=== PATIENT | male | born 1930 | race Hispanic/Latino ===

== ENCOUNTER 2020-06-12 20:38 | Inpatient (IN) | payer SELFPAY ==
[2020-06-12] MEDS ORDERED: NA CHLORIDE 0.9% 1,000 ML ONE (21:10)
[2020-06-12] MEDS ORDERED: ONDANSETRON 4 MG/2 ML VIAL ONE (21:10)
[2020-06-12] MEDS ORDERED: MORPHINE 4 MG/ML SYR ONE (21:10)
[2020-06-12 21:13] LABS: Basophils % 0.5 % (0-1.3); Hematocrit 36.4 % (39.6-49.0); Lymphocytes % 6.8 % (15.3-44.8); MPV 9.4 fL (7.6-11.3); RBC Red Blood Cell Count 3.93 M/uL (4.33-5.43)
[2020-06-12 21:16] LABS: Protime INR 1.04
[2020-06-12 21:36] LABS: Albumin 3.6 g/dL (3.4-5.0); Bilirubin Direct 0.2 mg/dL (0-0.2); Bilirubin Total 0.7 mg/dL (0.2-1.0); Magnesium 1.9 mg/dL (1.8-2.4); Potassium 3.5 mmol/L (3.5-5.1); Troponin (Emerg Dept Use Only) 0.07 ng/mL (0.0-0.045)
[2020-06-12 21:54] LABS: Platelet Estimate ADEQ; White Blood Cell Scan OK
[2020-06-12 21:55] LABS: Blood Morphology Comment NOT SEEN (NOT SEEN)
[2020-06-12] MEDS ORDERED: MORPHINE 2 MG/ML SYR ONE (22:03)
--- NOTE | 2020-06-12 22:12 | EDPHYS ---
Physician Documentation [facility] Name: Tomas Palacios Age: 89 yrs Sex: Male : 1930 Arrival Date: 06/12/2020 Time: 20:41 Bed 5 Private MD: MATIAS Physician Doc Conley HPI: 06/12 20:55 This 89 yrs old Male presents to ER via EMS with complaints of pulled down , hillary left hip pain, deformity. 20:55 The patient or guardian reports decreased range of motion, deformity, an injury, pain. hillary that occurred outdoors. The complaints affect the left hip and left upper thigh. Onset: The symptoms/episode began/occurred today. Modifying factors: The symptoms are alleviated by remaining still, the symptoms are aggravated by any movement, extension, internal rotation. The patient presents with decreased range of motion, an injury, pain, swelling, tenderness. The complaints affect the left hip, left gluteal fold, left inner thigh and left upper thigh. Context: The problem was sustained at home, resulted from the patient falling, the patient is not able to bear weight, the patient is not able to ambulate. Associated signs and symptoms: The patient has no apparent associated signs or symptoms. Historical: - Allergies: 20:52 No Known Allergies; mt2 - Home Meds: 20:52 None [Active]; mt2 - PMHx: 20:52 None; mt2 - Immunization history:: Adult Immunizations unknown. - Social history:: Smoking status: Patient denies any tobacco usage or history of. - Family history:: not pertinent. ROS: 20:55 Constitutional: Negative for fever, chills, and weight loss, Eyes: Negative for injury, hillary pain, redness, and discharge, ENT: Negative for injury, pain, and discharge, Neck: Negative for injury, pain, and swelling, Cardiovascular: Negative for chest pain, palpitations, and edema, Respiratory: Negative for shortness of breath, cough, wheezing, and pleuritic chest pain, Abdomen/GI: Negative for abdominal pain, nausea, vomiting, diarrhea, and constipation, Back: Negative for injury and pain, : Negative for injury, bleeding, discharge, and swelling, Skin: Negative for injury, rash, and discoloration, Neuro: Negative for headache, weakness, numbness, tingling, and seizure, Psych: Negative for depression, anxiety, suicide ideation, homicidal ideation, and hallucinations, Allergy/Immunology: Negative for hives, rash, and allergies, Endocrine: Negative for neck swelling, polydipsia, polyuria, polyphagia, and marked weight changes, Hematologic/Lymphatic: Negative for swollen nodes, abnormal bleeding, and unusual bruising. 20:55 MS/extremity: Positive for injury or acute deformity, decreased range of motion, pain, of the left hip, left gluteal fold, left inner thigh and left upper thigh. Exam: 20:55 Constitutional: This is a well developed, well nourished patient who is awake, alert, hillary and in no acute distress. Head/Face: Normocephalic, atraumatic. Eyes: Pupils equal round and reactive to light, extra-ocular motions intact. Lids and lashes normal. Conjunctiva and sclera are non-icteric and not injected. Cornea within normal limits. Periorbital areas with no swelling, redness, or edema. ENT: Nares patent. No nasal discharge, no septal abnormalities noted. Tympanic membranes are normal and external auditory canals are clear. Oropharynx with no redness, swelling, or masses, exudates, or evidence of obstruction, uvula midline. Mucous membranes moist. Neck: Trachea midline, no thyromegaly or masses palpated, and no cervical lymphadenopathy. Supple, full range of motion without nuchal rigidity, or vertebral point tenderness. No Meningismus. Chest/axilla: Normal chest wall appearance and motion. Nontender with no deformity. No lesions are appreciated. Respiratory: Lungs have equal breath sounds bilaterally, clear to auscultation and percussion. No rales, rhonchi or wheezes noted. No increased work of breathing, no retractions or nasal flaring. Abdomen/GI: Soft, non-tender, with normal bowel sounds. No distension or tympany. No guarding or rebound. No evidence of tenderness throughout. Back: No spinal tenderness. No costovertebral tenderness. Full range of motion. Male : Normal genitalia with no discharge or lesions. Skin: Warm, dry with normal turgor. Normal color with no rashes, no lesions, and no evidence of cellulitis. Neuro: Awake and alert, GCS 15, oriented to person, place, time, and situation. Cranial nerves II-XII grossly intact. Motor strength 5/5 in all extremities. Sensory grossly intact. Cerebellar exam normal. Normal gait. Psych: Awake, alert, with orientation to person, place and time. Behavior, mood, and affect are within normal limits. 20:55 Cardiovascular: Rate: tachycardic, Rhythm: regular, Pulses: no pulse deficits are appreciated, Heart sounds: normal, Edema: is not appreciated, JVD: is not appreciated. 20:55 Musculoskeletal/extremity: Extremities: decreased ROM, pain, swelling, tenderness, ROM: limited active range of motion, limited passive range of motion, Circulation is intact in all extremities. Sensation intact. Compartment Syndrome exam of affected extremity: is normal. DVT Exam: negative Homans' sign noted on exam, no appreciated bluish discoloration, no erythema, no increased warmth, pain, swelling, tenderness. 21:09 ECG was reviewed by the Attending Physician. [facility] Vital Signs: 20:48 BP 152 / 89; Pulse 130; Resp 19; Temp 98.4; Pulse Ox 100% on R/A; Weight 63.5 kg; Pain mt2 10/10; 21:30 BP 137 / 95; Pulse 97; Resp 16; Pulse Ox 97% ; Pain 10/10; mt2 22:19 BP 154 / 51; Pulse 97; Resp 16; Pulse Ox 99% on R/A; Pain 7/10; mt2 23:08 BP 115 / 49; Pulse 86; Resp 16; Pulse Ox 97% on R/A; Pain 5/10; mt2 MDM: 20:42 Patient medically screened. [facility] 20:58 Data reviewed: vital signs, nurses notes, lab test result(s), EKG, radiologic studies, [facility] plain films. 06/12 20:53 Order name: Basic Metabolic Panel; Complete Time: 22:06 [facility] 06/12 20:53 Order name: CBC with Diff; Complete Time: 22:06 [facility] 06/12 20:53 Order name: LFT's; Complete Time: 22:06 [facility] 06/12 20:53 Order name: Magnesium; Complete Time: 22:06 [facility] 06/12 20:53 Order name: NT PRO-BNP; Complete Time: 22:06 [facility] 06/12 20:53 Order name: PT-INR; Complete Time: 22:06 [facility] 06/12 20:53 Order name: Troponin (emerg Dept Use Only); Complete Time: 22:06 [facility] 06/12 20:53 Order name: XRAY Chest (1 view) [facility] 06/12 20:53 Order name: Pelvis XRAY [facility] 06/12 20:53 Order name: Hip Left 2 View XRAY [facility] 06/12 20:53 Order name: Femur Left XRAY [facility] 06/12 20:53 Order name: Type And Screen [facility] 06/12 21:17 Order name: CBC Smear Scan; Complete Time: 22:06 EDMS 06/12 20:53 Order name: EKG; Complete Time: 20:54 [facility] 06/12 20:53 Order name: Cardiac monitoring; Complete Time: 21:08 [facility] 06/12 20:53 Order name: EKG - Nurse/Tech; Complete Time: 21:08 [facility] 06/12 20:53 Order name: IV Saline Lock; Complete Time: 21:08 [facility] 06/12 20:53 Order name: Labs collected and sent; Complete Time: 21:08 [facility] 06/12 20:53 Order name: O2 Per Protocol; Complete Time: 21:08 [facility] 06/12 20:53 Order name: O2 Sat Monitoring [facility] 06/12 21:40 Order name: Labs - recollect needed; Complete Time: 21:55 06/12 22:14 Order name: EKG; Complete Time: 22:14 [facility] 06/12 22:14 Order name: EKG - Nurse/Tech; Complete Time: 22:15 [facility] EC:09 Rate is 117 beats/min. Rhythm is regular. QRS [place] is Normal. [place] interval is normal. [facility] QRS interval is normal. QT interval is normal. No Q waves. T waves are Normal. No ST changes noted. Clinical impression: Sinus tachycardia and No evidence of ischemia. Interpreted by me. Reviewed by me. Administered Medications: 21:07 Drug: NS 0.9% 1000 ml Route: IV; Rate: 1 bolus; Site: right antecubital; mt2 22:46 Follow up: Response: No adverse reaction mt2 22:46 Follow up: IV Status: Completed infusion mt2 21:07 Drug: morphine 2 mg Route: IVP; Site: right antecubital; mt2 21:37 Follow up: Response: No adverse reaction; Pain is decreased mt2 21:07 Drug: Zofran (Ondansetron) 4 mg Route: IVP; Site: right antecubital; mt2 21:37 Follow up: Response: No adverse reaction; Nausea is decreased mt2 21:54 Drug: morphine 2 mg Route: IVP; Site: right antecubital; ll2 21:54 Follow up: Response: No adverse reaction; RASS: Alert and Calm (0) ll2 22:30 Drug: Lopressor (metoprolol TARTRATE) 50 mg Route: PO; mt2 22:45 Follow up: Response: No adverse reaction mt2 22:31 Drug: Aspirin Chewable Tablet 162 mg Route: PO; mt2 22:45 Follow up: Response: No adverse reaction mt2 22:32 Drug: Pepcid 20 mg Route: IVP; Site: right antecubital; mt2 22:45 Follow up: Response: No adverse reaction mt2 Disposition: 06/12/20 22:11 Hospitalization ordered by [facility] for Inpatient Admission. Preliminary diagnosis are Fall due to bumping against object, Displaced intertrochanteric fracture of left femur. - Bed requested for Telemetry/MedSurg (Inpatient). - Status is Inpatient Admission. mt2 - Condition is Fair. - Problem is new. - Symptoms have improved. Signatures: Dispatcher [employer] EDMS Jaycee Betancourt RN RN [place] Bledsoe RN RN sg Anderson, Corey, MD MD cha Linscombe, Lacie, RN RN 2 Reina Arana RN RN mt2 Corrections: (The following items were deleted from the chart) 22:36 22:11 Hospitalization Ordered by [facility] DO for Inpatient Admission. Preliminary diagnosis is Fall due to bumping against object; Displaced intertrochanteric fracture of left femur. Bed requested for Telemetry/MedSurg (Inpatient). Status is Inpatient Admission. Condition is Fair. Problem is new. Symptoms have improved. [facility] 23:18 22:36 06/12/2020 22:11 Hospitalization Ordered by [facility] DO for Inpatient mt2 Admission. Preliminary diagnosis is Fall due to bumping against object; Displaced intertrochanteric fracture of left femur. Bed requested for Telemetry/MedSurg (Inpatient). Status is Inpatient Admission. Condition is Fair. Problem is new. Symptoms have improved.
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
[2020-06-12] MEDS ORDERED: FAMOTIDINE 20 MG/2 ML VIAL IV ONE (22:34)
[2020-06-12] MEDS ORDERED: METOPROLOL TAR 50 MG TAB ONE (22:34)
[2020-06-12] MEDS ORDERED: ASPIRIN EC 81 MG TAB PO ONE (22:34)
--- NOTE | 2020-06-12 22:42 | P.HP ---
Certification for Inpatient Patient admitted to: Inpatient With expected LOS: >2 Midnights Patient will require the following post-hospital care: Rehabilitation Practitioner: I am a practitioner with admitting privileges, knowledge of patient current condition, hospital course, and medical plan of care. Services: Services provided to patient in accordance with Admission requirements found in Title 42 Section 412.3 of the Code of Federal Regulations <Maxwell Rankin - Last Filed: 06/12/20 22:36> Patient History Date of Service: 06/12/20 Reason for admission: Left intertrochanteric femur fracture History of Present Illness: 89-year-old male with no reported medical history presents emergency department after a fall that occurred earlier today. Patient reports significant left hip pain. Upon presentation to the emergency department patient was tachycardic with a heart rate around 130s in sinus tachycardia. Patient was evaluated in the emergency department found to have a displaced left intratrochanteric femoral fracture. Orthopedics was consulted while patient is in the emergency department. Patient was given 1 L normal saline bolus and metoprolol p.o., heart rate came down nicely and is around 100 beats per min currently. ED provider wishes to admit patient for further evaluation and management. Patient also noted to have mildly elevated troponin at 0.07. - Past Medical/Surgical History Diabetic: No Past Medical History: Patient denies medical history Past Surgical History: Patient denies surgical history Psychosocial/ Personal History: Patient lives at home with his son - Family History Family History: Reviewed- Non-Contributory - Social History Smoking Status: Never smoker Alcohol use: No CD- Drugs: No Caffeine use: No Place of Residence: Home <Maxwell Rankin - Last Filed: 06/12/20 22:36> Date of Service: 06/13/20 <Brandon Lanza - Last Filed: 06/13/20 20:27> Review of Systems Musculoskeletal: Other (Left hip pain), As per HPI <Maxwell Rankin - Last Filed: 06/12/20 22:36> Physical Examination - Physical Exam General: Alert, In no apparent distress, Oriented x3 HEENT: Atraumatic, Normocephalic, PERRLA Neck: Supple, 2+ carotid pulse no bruit Respiratory: Clear to auscultation bilaterally, Normal air movement Cardiovascular: Normal pulses, Regular rate/rhythm, Normal S1 S2 Capillary refill: <2 Seconds Gastrointestinal: Normal bowel sounds, Soft and benign Musculoskeletal: No contractures, No erythema, Swelling (Left hip) Integumentary: No significant lesion, No erythema Neurological: Normal speech, Normal strength at 5/5 x4 extr, Normal tone - Studies Laboratory Data (last 24 hrs) 06/12/20 21:00: PT 12.3, INR 1.04 06/12/20 21:00: WBC 15.3 H, Hgb 12.5 L, Hct 36.4 L, Plt Count 159 06/12/20 21:00: Sodium 143, Potassium 3.5, BUN 15, Creatinine 1.07, Glucose 206 H, Magnesium 1.9, Total Bilirubin 0.7, AST 23, ALT 27, Alkaline Phosphatase 84 <Maxwell Rankin - Last Filed: 06/12/20 22:36> - Studies Laboratory Data (last 24 hrs) 06/12/20 21:00: PT 12.3, INR 1.04 06/12/20 21:00: WBC 15.3 H, Hgb 12.5 L, Hct 36.4 L, Plt Count 159 06/12/20 21:00: Sodium 143, Potassium 3.5, BUN 15, Creatinine 1.07, Glucose 206 H, Magnesium 1.9, Total Bilirubin 0.7, AST 23, ALT 27, Alkaline Phosphatase 84 <Brandon Lanza - Last Filed: 06/13/20 20:27> Assessment and Plan - Plan Assessment Displaced left intertrochanteric femur fracture Mildly elevated troponin level Hyperglycemia without history of diabetes Plan Displaced left intertrochanteric femur fracture: Orthopedics has been consulted. NPO after midnight, will hold off on DVT prophylaxis. Will consult Cardiology for cardiac clearance. Pain and nausea medicines as needed. Appreciate further input from orthopedics. Mildly elevated troponin level: Cardiology consult in place. Will continue with metoprolol at this time as patient was tachycardic and hypertensive on admission. Will also trend troponin levels. Appreciate further input from cardiology. Hyperglycemia without history of diabetes: Will obtain A1c the level with mo rning labs. Discharge Plan: Home Plan to discharge in: Greater than 2 days - Advance Directives Does patient have a Living Will: No Does patient have a Durable POA for Healthcare: No - Code Status/Comfort Care Code Status Assessed: Yes (Patient is full code) Critical Care: No Time Spent Managing Pts Care (In Minutes): 55 <Maxwell Rankin - Last Filed: 06/12/20 22:36> Physician Review Additional Text: Plan of care discussed with Maxwell Rankin, and I agree with the management plan as noted above. <Brandon Lanza - Last Filed: 06/13/20 20:27>
[2020-06-12] MEDS ORDERED: ACETAMINOPHEN 500 MG TAB PO PRN (23:52)
[2020-06-12] MEDS ORDERED: ONDANSETRON 4 MG/2 ML VIAL IV PRN (23:52)
[2020-06-12] MEDS ORDERED: MORPHINE 2 MG/ML SYR IV PRN (23:52)
[2020-06-13] MEDS: NA CHLORIDE 0.9% 1,000 ML IV SCH ×4 (00:57→23:06)
[2020-06-13] MEDS: HYDROCODONE/APAP 7.5/325 MG TAB PO PRN ×3 (00:57→22:12)
[2020-06-13 01:57] VITALS: BMI 28.0
[2020-06-13 03:41] LABS: Absolute Lymphocytes (CBC) 0.4 K/uL (0.7-4.9); Basophils % 2.4 % (0-1.3); Hematocrit 30.4 % (39.6-49.0); Lymphocytes % 4.5 % (15.3-44.8); MPV 9.3 fL (7.6-11.3); RBC Red Blood Cell Count 3.22 M/uL (4.33-5.43)
[2020-06-13 03:42] LABS: Protime INR 1.07
[2020-06-13 03:49] LABS: Potassium 4.2 mmol/L (3.5-5.1)
[2020-06-13] MEDS: METOPROLOL TAR 25 MG TAB PO SCH ×2 (05:59→18:00)
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
--- NOTE | 2020-06-13 07:07 | RAD REPORT ---
EXAM DESCRIPTION: RAD - Femur Left - 06/12/2020 9:40 pm CLINICAL HISTORY: PAIN, fall, pelvic and hip pain COMPARISON: Pelvis same date FINDINGS: Comminuted intertrochanteric left femur fracture is present. There is a large lesser troch anter free fracture fragment that involves the lesser trochanter and extends into the shaft. Femoral neck and head are intact. No AVN or focal femoral head abnormality. Distal to the fracture the shaft is intact with no acute finding at the knee. Approximately 2 cm of distraction present along the superior greater trochanter fracture line. The superior tip of the grea ter trochanter may also be fractured. No foreign body in the soft tissues. No large hematoma seen. IMPRESSION: Comminuted left femur intertrochanteric fracture as detailed.
--- NOTE | 2020-06-13 07:09 | RAD REPORT ---
EXAM DESCRIPTION: RAD - Chest Single View - 06/12/2020 9:39 pm CLINICAL HISTORY: COUGH COMPARISON: None TECHNIQUE: AP portable chest image was obtained 06/12/2020 9:39 pm . FINDINGS: Lung volumes are low. No pulmonary edema or focal lung parenchymal process. Heart and vasc ulature are normal. No measurable pleural effusion and no pneumothorax. No acute bony abnormality see n. No acute aortic findings suspected. IMPRESSION: No acute cardiopulmonary process.
--- NOTE | 2020-06-13 07:09 | RAD REPORT ---
EXAM DESCRIPTION: RAD - Hip Left 2 View - 06/12/2020 9:39 pm CLINICAL HISTORY: PAINpelvis same date, left femur same date COMPARISON: No comparisons FINDINGS: AP and cross-table lateral views of the left hip were obtained. Comminuted intertrochanteric fracture is present. A transverse fracture is present at the superior ti p of the greater trochanter without distraction. 2 cm of distraction seen along the main intertrochan teric fracture line. The lesser trochanter is a free fracture fragment with a extension of the free f racture fragment that continues to involve the proximal femur. No pathologic component identifiable. Femoral head and neck are intact. No significant soft tissue finding identifiable. IMPRESSION: Left femur comminuted intertrochanteric fracture as detailed.
[2020-06-13] MEDS: ASPIRIN EC 81 MG TAB PO SCH (08:05)
[2020-06-13] MEDS ORDERED: PNEUMOCOCCAL VACCINE 0.5 ML IMVAC ONE (10:00)
--- NOTE | 2020-06-13 12:23 | EKG ---
Test Date: 2020-06-12 Test Time: 21:03:18 [employer]ics Instructor: JUN MEASUREMENT RESULTS: Intervals: Rate: 117 SC: 132 QRSD: 74 QT: 328 QTc: 457 [place]: P: 63 SC: 132 QRS: 34 T: 69 INTERPRETIVE STATEMENTS: Sinus tachycardia Otherwise normal ECG No previous ECG available for comparison Electronically Signed On 06-13-20 12:22:38 CDT by Conrad Del Cid
[2020-06-13] MEDS ORDERED: TRANEXAMIC ACID 1,000 MG in NA CHLORIDE 0.9% 50 ML IV ONE ×4 (15:00)
[2020-06-13] MEDS ORDERED: Ringers Lactate 1,000 ML IV ONE ×2 (15:13→17:51)
[2020-06-13] MEDS ORDERED: CEFAZOLIN/SWI 1gm 1 GM/10 ML SYR ONE (15:26)
[2020-06-13] MEDS ORDERED: SUCCINYLCHOLINE 20 MG/ML (10 ML) IV ONE (16:28)
[2020-06-13] MEDS ORDERED: propofoL 200 MG/20 ML VIAL IV ONE (16:30)
[2020-06-13] MEDS ORDERED: FENTANYL CITR 100 MCG/2 ML ONE (16:31)
--- NOTE | 2020-06-13 16:44 | P.PN ---
Subjective Date of Service: 06/13/20 Chief Complaint: Left intertrochanteric femur fracture Subjective: Improving Reports feeling well, except for some upper thigh/hip pain with movement Review of Systems 10-point ROS is otherwise unremarkable Physical Examination - Vital Signs Temperature: 97.6 F Blood Pressure: 98/51 Pulse: 65 Respirations: 15 Pulse Ox (%): 99 - Physical Exam General: Alert, In no apparent distress HEENT: EOMI, Sclerae nonicteric Neck: Supple, No LAD Respiratory: Clear to auscultation bilaterally, Normal air movement Cardiovascular: No edema, Regular rate/rhythm, Normal S1 S2 Gastrointestinal: Soft and benign, Non-distended Musculoskeletal: Tenderness (Left upper thigh/hip) Integumentary: No rashes Neurological: Normal speech, Normal affect - Studies Laboratory Data (last 24 hrs) 06/12/20 21:00: PT 12.3, INR 1.04 06/12/20 21:00: WBC 15.3 H, Hgb 12.5 L, Hct 36.4 L, Plt Count 159 06/12/20 21:00: Sodium 143, Potassium 3.5, BUN 15, Creatinine 1.07, Glucose 206 H, Magnesium 1.9, Total Bilirubin 0.7, AST 23, ALT 27, Alkaline Phosphatase 84 Assessment & Plan Physician Review Additional Text: Displaced left intertrochanteric femur fracture Mildly elevated troponin level Hyperglycemia without history of diabetes Plan Displaced left intertrochanteric femur fracture: Ortho consulted NPO for possible surgery today Pain and nausea medicines as needed. Mildly elevated troponin level: Cardiology consult in place. Continue metoprolol Troponin down trending, do not suspect ACS Hyperglycemia without history of diabetes: Hemoglobin A1c 5.8 Dispo: Standing or surgery, will need PT OT eval. Time Spent Managing Pts Care (In Minutes): 35
--- NOTE | 2020-06-13 18:40 | P.BOP ---
Preoperative diagnosis: left comminuted intertrochanteric femur fx with subtrochanteric extension Postoperative diagnosis: same Primary procedure: JOSE RAUL ulices fixation of hip fracture Estimated blood loss: 100ccs Anesthesia: General Complications: None Transferred to: Recovery Room Condition: Good
[2020-06-13] MEDS ORDERED: MORPHINE 4 MG/ML SYR IV ONE ×2 (18:59→19:15)
[2020-06-13] MEDS: MORPHINE 4 MG/ML SYR ONE ×2 (18:59→19:15)
--- NOTE | 2020-06-13 20:09 | RAD REPORT ---
EXAM DESCRIPTION: RAD - Hip In Or - 06/13/2020 7:50 pm CLINICAL HISTORY: Femoral fracture FINDINGS: Fluoroscopy time 5 minutes. 7 fluoroscopic spot images obtained Surgery performed by Dr. Elliott Compression screw and intramedullary ulices affix a femoral fracture
[2020-06-13] MEDS ORDERED: CEFAZOLIN SODIUM 1 GM/VIAL ONE (20:38)
[2020-06-14] MEDS: CEFAZOLIN/SWI 1gm 1 GM/10 ML SYR IVP SCH ×3 (00:17→17:45)
[2020-06-14] MEDS ORDERED: CEFAZOLIN/NS 1gm 1 GM/50 ML BAG IV SCH (01:00)
--- NOTE | 2020-06-14 04:33 | OP ---
Date of Procedure: 06/13/2020 Surgeon: Berlin Elliott MD Preoperative Diagnosis: Left comminuted intertrochanteric femur fracture with subtrochanteric extens ion. Postoperative Diagnosis: Left comminuted intertrochanteric femur fracture with subtrochanteric exten ihsan. Procedure: Left closed and some open reduction techniques with placement of an Affixus long femoral nail. Estimated Blood Loss: 100 cc. Complications: No complications. Pathology: No pathology specimen sent. Indications For Operation: Mr. Palacios is an 89-year-old male, who unfortunately fell injuring his lef t lower extremity. He was seen and examined in the emergency department, where he was found to have a comminuted left proximal femur fracture. Risks, benefits, and alternatives were discussed with the patient, also with the family. They agreed to proceed with intramedullary fixation. Family is made aware that this is a very complex comminuted fracture pattern, which can be somewhat difficult and m ay pose some healing problems. They state they understand things as presented and agreed to proceed. Description Of Procedure: The patient was taken to the operating room and placed in supine position. General anesthesia was obtained by staff. Following this, he was then placed on the fracture table . His bony prominences as well as position with the perineal post as well as position of the leg wer e completed. The fracture itself reduced fairly well, however, is highly comminuted is difficult to carpenter foreman. Left lower extremity was then prepped and draped in usual sterile fashion. C-arm was brought in to aneudy out the tip of the greater trochanter. A vertical incision was made vertical to this and a finger was placed to palpate the tip of the femur. A starting awl was then used with care being t aken to stay as medial as possible and was placed down a few centimeters. Attempts were made to pass the guide ulices at this point, however, was not able to be done with standard techniques of simply adj usting the entry awl. Therefore, the planned incision for the cephalomedullary screw was made. This allowed for placement of a bone hook on the proximal fragment. This did help align it slightly bett er. However, unfortunately, with this technique, still we were not able to pass it using the startin g awl; therefore, decision was made to remove the starting awl and placed the guide ulices freehanded. This was placed down with a significant amount of placed down the fracture line. It was t hen measured at a position, which I believe would have been deep enough for a short nail. It appeare d that the minimum length of the nail should probably be about 220 mm at the distal screw hole. The short nail is 180 mm with the distal screw hole at 150 mm. Therefore, it is felt that a short ulices wo uld not be useful and the decision was made to open and ream. The entire femur was reamed to a size of 10-1/2. A size 9 was selected. A size 9 was then placed over a new straight guide ulices over which we also reamed down to appropriate depth. Following this, the cephalomedullary screw was measured and placed. Anti-rotation screw was measured and placed and the distal interlocking screw was placed using the perfect [place] technique. After this, wounds were irrigated and the fascia was closed in a watertight fashion using Vicryl sutures, followed by closure of skin with Vicryl and stap les. The patient was then placed in Aquacel dressing, awakened, and taken to recovery room in good c ondition. No complications. /DAYLIN Voice ID: [id number] Report ID: [id number]
--- NOTE | 2020-06-14 05:38 | CON ---
Date of Consultation: 06/13/2020 History Of Present Illness: This is my first time seeing this patient to my knowledge. He is a 7 fe et 2 inch male, who apparently injured his left lower extremity. He was seen and examined in the [facility] where he was ruled out for other injuries, but he has significant pain related to t he left hip. X-rays were taken in the emergency department, which revealed a comminuted, highly disp laced intertrochanteric fracture with subtrochanteric extension. Physical Examination: All the long bones and joints are palpated without pain or crepitation with exception of a significan t pain at rest and also with movement of his left lower extremity. His pain is primarily in the jeovany on of the groin and femur. Assessment/plan: Review of x-rays do reveal this as a complex fracture and plan is for closed or ope n reduction with intramedullary fixation. This has been discussed with the patient as well as his fa sarah by phone. Cannot speak with the family in person because of inability to obtain transportation, but all parties agreed to proceed. All their questions have been answered. /DAYLIN Voice ID: [id number] Report ID: [id number]
[2020-06-14] MEDS: METOPROLOL TAR 25 MG TAB PO SCH ×2 (05:42→17:44)
[2020-06-14 06:06] LABS: Absolute Lymphocytes (CBC) 1.2 K/uL (0.7-4.9); Hematocrit 22.2 % (39.6-49.0); Lymphocytes % 16.4 % (15.3-44.8); MPV 9.7 fL (7.6-11.3); RBC Red Blood Cell Count 2.37 M/uL (4.33-5.43)
[2020-06-14 06:12] LABS: BUN Blood Urea Nitrogen 14 mg/dL (7-18); Bicarbonate 24 mmol/L (21-32); Glucose Level 128 mg/dL (74-106); Sodium Level 144 mmol/L (136-145)
[2020-06-14] MEDS ORDERED: NA CHLORIDE 0.9% 1,000 ML IV SCH (07:00)
[2020-06-14 07:28] LABS: Blood Morphology Comment NOT SEEN (NOT SEEN); Platelet Estimate DECR; White Blood Cell Scan OK (OK)
[2020-06-14] MEDS: NA CHLORIDE 0.9% 250 ML IV SCH ×4 (08:30→19:30)
[2020-06-14] MEDS: ENOXAPARIN 40 MG/0.4 ML SQ SCH ×2 (09:00→11:03)
[2020-06-14] MEDS: ASPIRIN EC 81 MG TAB PO SCH (09:00)
[2020-06-14] MEDS: HYDROCODONE/APAP 7.5/325 MG TAB PO PRN (14:20)
--- NOTE | 2020-06-14 14:55 | P.PN ---
Subjective Date of Service: 06/14/20 Chief Complaint: Left intertrochanteric femur fracture s/p surgical fixation yesterday, reports pain is controlled, voided without issue Physical Examination - Vital Signs Temperature: 97.8 F Blood Pressure: 120/57 Pulse: 91 Respirations: 20 Pulse Ox (%): 96 - Physical Exam General: Alert, In no apparent distress HEENT: Mucous membr. moist/pink Neck: No LAD Respiratory: Clear to auscultation bilaterally, Normal air movement Cardiovascular: No edema, Regular rate/rhythm, Normal S1 S2 Gastrointestinal: Soft and benign, Non-distended, No tenderness Musculoskeletal: No warmth, Tenderness (along surgical incision) Integumentary: No rashes Neurological: Normal speech, Sensation intact Assessment & Plan Physician Review Additional Text: Displaced left intertrochanteric femur fracture Mildly elevated troponin level Hyperglycemia without history of diabetes Plan Displaced left intertrochanteric femur fracture: Ortho consulted - s/p surgical fixation (06/13/20) pain control, advance diet as tolerated PT/OT consulted no insurance, discussed with patient he will need significant assistance by family members or friends after discharge Mildly elevated troponin level: Cardiology consult in place. Continue metoprolol Troponin down-trended do not suspect ACS Hyperglycemia without history of diabetes: Hemoglobin A1c 5.8 Dispo: SW/CM assistance for discharge, family will need to help patient Time Spent Managing Pts Care (In Minutes): 35
[2020-06-14 16:17] LABS: Hematocrit 26.2 % (39.6-49.0)
[2020-06-15] MEDS: NA CHLORIDE 0.9% 250 ML IV SCH ×4 (01:45→20:30)
[2020-06-15] MEDS: METOPROLOL TAR 25 MG TAB PO SCH ×2 (05:35→17:01)
--- NOTE | 2020-06-15 05:37 | DS ---
The patient is seen, he is interactive in his bed. He has not got any specific complaints. His dres sing is clean, dry, and intact with the exception of a very small area that can be seen with Aquacel. He does have some swelling of his left lower extremity, which is expected as well as pain related t o his left lower extremity after surgery yesterday. Upon talking to the hospitalist, he has had a re latively low hemoglobin. He has received 2 units of blood. However, he is going to continue on Love nox. Given instructions that he may have a fairly significant amount of blood loss into his thigh as he is quite small and his fracture was very extensive being almost more related to a femoral shaft f racture than actual hip fracture. However, given his poor previous medical history, they should be o n watch for anything like GI bleed or polyp and this may preclude the use of anticoagulation. Howeve r, if it is from his hip, they should stop relatively quickly. Otherwise, would recommend anticoagul ation for 3 weeks with either Xarelto, Eliquis, Coumadin or Lovenox. After 3 weeks, I would recommen d aspirin for 3 additional weeks. He should be touchdown weightbearing. [place] can come out day 10 to 12 or possibly even as late as day 14. I think they can call me with any problems related to his hip. Discharge planning is somewhat uncertain, but I will at least like to see him 6 weeks after sweeney rgery for x-rays or sooner with any significant problems. /DAYLIN Voice ID: [id number] Report ID: [id number]
[2020-06-15 06:08] LABS: Hematocrit 23.6 % (39.6-49.0); MPV 9.5 fL (7.6-11.3); RBC Red Blood Cell Count 2.57 M/uL (4.33-5.43)
[2020-06-15] MEDS: ENOXAPARIN 40 MG/0.4 ML SQ SCH (07:46)
[2020-06-15] MEDS: ASPIRIN EC 81 MG TAB PO SCH (07:47)
[2020-06-15] MEDS: HYDROCODONE/APAP 7.5/325 MG TAB PO PRN (09:03)
--- NOTE | 2020-06-15 11:07 | P.PN ---
Subjective Date of Service: 06/15/20 Chief Complaint: Left intertrochanteric femur fracture reports slightly more pain today, but reportedly didn't ask for pain meds overnight. Worked with PT yesterday Review of Systems 10-point ROS is otherwise unremarkable Physical Examination - Vital Signs Temperature: 99.2 F Blood Pressure: 126/60 Pulse: 92 Respirations: 16 Pulse Ox (%): 97 - Physical Exam General: Alert, In no apparent distress, Oriented x3 HEENT: Sclerae nonicteric Neck: Supple Respiratory: Clear to auscultation bilaterally, Normal air movement Cardiovascular: Regular rate/rhythm, Normal S1 S2 Gastrointestinal: Hypoactive, Soft and benign, No tenderness Musculoskeletal: No swelling, No erythema, Tenderness (along left hip) Neurological: Normal speech (but mumbles), Normal affect Assessment & Plan Physician Review Additional Text: Displaced left intertrochanteric femur fracture Mildly elevated troponin level Hyperglycemia without history of diabetes Plan Displaced left intertrochanteric femur fracture: Ortho consulted - s/p surgical fixation (06/13/20) pain control, heart healthy diet PT/OT consulted no insurance, discussed with patient he will need significant assistance by family members or friends after discharge he is unsure if anyone can help him. Will reach out to son Hgb downtrending after 1uPRBC, will check again tomorrow if hgb stable, anticipate dc home tomorrow Mildly elevated troponin level: Cardiology consult in place. Continue metoprolol Troponin down-trended do not suspect ACS Hyperglycemia without history of diabetes: Hemoglobin A1c 5.8 Dispo: SW/CM assistance for discharge, family will need to help patient, Hgb and Plt downtrending, on lovenox for post-op prophylaxis will need anticoagulation for a few weeks on discharge. Time Spent Managing Pts Care (In Minutes): 35
[2020-06-15] MEDS: TRAMADOL HCL 50 MG TAB PO PRN (13:59)
[2020-06-16] MEDS: TRAMADOL HCL 50 MG TAB PO PRN (00:06)
[2020-06-16] MEDS: NA CHLORIDE 0.9% 250 ML IV SCH ×2 (02:02→09:00)
[2020-06-16] MEDS: HYDROCODONE/APAP 7.5/325 MG TAB PO PRN (03:22)
[2020-06-16] MEDS: METOPROLOL TAR 25 MG TAB PO SCH (05:20)
[2020-06-16 06:08] LABS: Hematocrit 24.7 % (39.6-49.0); MPV 9.2 fL (7.6-11.3); RBC Red Blood Cell Count 2.69 M/uL (4.33-5.43)
[2020-06-16 06:38] LABS: BUN Blood Urea Nitrogen 12 mg/dL (7-18); Bicarbonate 26 mmol/L (21-32); Glucose Level 114 mg/dL (74-106); Potassium 3.7 mmol/L (3.5-5.1); Sodium Level 144 mmol/L (136-145)
[2020-06-16] MEDS ORDERED: POTASSIUM CL SA 10 MEQ TAB PO ONE (09:00)
[2020-06-16] MEDS: ENOXAPARIN 40 MG/0.4 ML SQ SCH (09:35)
[2020-06-16] MEDS: ASPIRIN EC 81 MG TAB PO SCH (09:35)
[2020-06-16 10:42] VITALS: O2SAT 100
--- NOTE | 2020-06-16 12:31 | P.DS ---
Admission Date: 06/12/20 Discharge Date: 06/16/20 Disposition: ROUTINE DISCHARGE Discharge Condition: FAIR Reason for Admission: Left intertrochanteric femur fracture Consultations: Orthopedic Surgery - Dr. Elliott Procedures: Femur x-ray (06/12/20): Comminuted left femur intertrochanteric fracture Left closed and some open reduction techniques with placement of an Affixus long femoral nail (06/13/20) by Dr. Elliott. Skin closure with Vicryl and gato Problem list Displaced left intertrochanteric femur fracture, now status post repair Mildly elevated troponin level Hyperglycemia without history of diabetes (hemoglobin A1c 5.8) Brief History of Present Illness: 89-year-old male with no reported medical history presents emergency department after a fall that occurred earlier today. Patient reports significant left hip pain. Upon presentation to the emergency department patient was tachycardic with a heart rate around 130s in sinus tachycardia. Patient was evaluated in the emergency department found to have a displaced left intratrochanteric femoral fracture. Orthopedics was consulted while patient is in the emergency department. Patient was given 1 L normal saline bolus and metoprolol p.o., heart rate came down nicely and is around 100 beats per min currently. Hospital Course: The patient was admitted, orthopedic surgery was consulted and patient underwent surgical fixation on 06/13/20. Patient's troponins were trended (0.07-> 0.1-> 0.07), and felt likely due to demand ischemia in the setting of sinus tachycardia due to severe pain of femur fracture. Patient did well postoperatively. On day of discharge, he was tolerating p.o. intake, voiding without issue, and reported passing flatus. Unfortunately he does not have insurance and will be discharged home, where he lives with 1 son, and his other son will be able to drop by and help out. He was discharged home with 3 weeks of Xarelto (coupon was provided for a free pack), he will then take 3 weeks of aspirin. He was instructed to follow up with his PCP in the next 1-2 weeks for staple removal (recommended postop day 10-12). He will follow up with orthopedic surgery and in approximately 6 weeks for x-rays. He is touch-down weight-bearing as tolerated I spoke with both sons regarding discharge instructions In order to qualify for Xarelto coupon, a 30 day prescription is required. I instructed both of them that the patient should only take it for 3 weeks. I also spoke to [facility] pharmacist to reiterate instructions. Vital Signs/Physical Exam: Temp Pulse Resp BP Pulse Ox 97.8 F 86 18 133/59 L 100 06/16/20 08:00 06/16/20 08:00 06/16/20 08:00 06/16/20 08:00 06/16/20 08:00 General: Alert, In no apparent distress HEENT: Atraumatic, Mucous membr. moist/pink, EOMI, Sclerae nonicteric Neck: Supple, LAD Respiratory: Clear to auscultation bilaterally, Normal air movement Cardiovascular: Regular rate/rhythm, Normal S1 S2 Gastrointestinal: Soft and benign, Non-distended, No tenderness Musculoskeletal: No swelling, Other (Pain of left leg/upper thigh) Integumentary: No rashes Neurological: Normal speech, Normal affect Laboratory Data at Discharge: WBC 5.5 K/uL (4.3-10.9) 06/16/20 05:54 Hgb 8.7 g/dL (13.6-17.9) L 06/16/20 05:54 Hct 24.7 % (39.6-49.0) L 06/16/20 05:54 Plt Count 98 K/uL (152-406) L 06/16/20 05:54 PT 12.6 SECONDS (9.5-12.5) H 06/13/20 03:16 INR 1.07 06/13/20 03:16 APTT 25.4 SECONDS (24.3-36.9) 06/13/20 03:16 Sodium 144 mmol/L (136-145) 06/16/20 05:54 Potassium 3.7 mmol/L (3.5-5.1) 06/16/20 05:54 BUN 12 mg/dL (7-18) 06/16/20 05:54 Creatinine 0.57 mg/dL (0.55-1.3) 06/16/20 05:54 Glucose 114 mg/dL (74-106) H 06/16/20 05:54 Magnesium 1.9 mg/dL (1.8-2.4) 06/12/20 21:00 Total Bilirubin 0.7 mg/dL (0.2-1.0) 06/12/20 21:00 AST 23 U/L (15-37) 06/12/20 21:00 ALT 27 U/L (12-78) 06/12/20 21:00 Alkaline Phosphatase 84 U/L (45-117) 06/12/20 21:00 Troponin I 0.07 ng/mL (0.0-0.045) H 06/13/20 09:06 Triglycerides 61 mg/dL (<150) 06/13/20 03:16 Cholesterol 115 mg/dL (<200) 06/13/20 03:16 HDL Cholesterol 39 mg/dL (40-60) L 06/13/20 03:16 Cholesterol/HDL Ratio 2.95 06/13/20 03:16 Home Medications: Rivaroxaban [Xarelto] 10 mg PO DAILY 30 Days #30 tablet 06/16/20 traMADol HCL [Ultram*] 50 mg PO Q6H PRN 5 Days #20 tab 06/16/20 New Medications: traMADol HCL [Ultram*] 50 mg PO Q6H PRN 5 Days #20 tab PRN Reason: Pain Scale 5-7 (Moderate) Rivaroxaban [Xarelto] 10 mg PO DAILY 30 Days #30 tablet Patient Discharge Instructions: Follow up with PCP within 1-2 weeks. Evans will need to be removed 10-12 days after surgery, 14 days at the latest. Follow up with Orthopedic surgery, Dr. Elliott in ~6 weeks, or sooner if any problems. Take 10mg Xarelto (rivaroxaban) once a day for 3 weeks, then take Aspirin once a day for 3 weeks. Diet: AHA Activity: Touch-down Followup: Berlin Elliott MD [ACTIVE - CAN ADMIT] - Time spent managing pt's care (in minutes): 35
[2020-06-16 15:24] VITALS: BP 127/60; TEMP 97.1
--- NOTE | 2020-06-17 05:51 | PN ---
Date of Progress Note: 06/14/2020 Subjective: The patient is 89-year-old, no significant past history, was cleared for surgery, underw ent a left hip surgery by Dr. Elliott yesterday. The patient did very well with the surgery, is pl anned for discharge. No arrhythmia postoperatively. No evidence of CHF. Objective: Vital Signs: Remained stable. Diagnostic Studies: Last hemoglobin was 8.2. Plan: We will sign off the case for now. I will be available for questions if the need arises. ISMAEL/DAYLIN Voice ID: [id number] Report ID: [id number]
--- NOTE | 2020-06-17 10:47 | CON ---
Date of Consultation: 06/13/2020 Admitted on 06/12/[address] Lanza. The patient was seen on 06/13/2020. Reason For Consultation: Cardiac clearance for left hip fracture. History Of Present Illness: The patient is 89 years old. No significant past medical history, admit stella with a left hip fracture. Dr. Elliott has been consulted for surgery. We are seeing the patie nt for cardiac clearance. The patient had a troponin of 0.07. Was anemic at 7.5, now is 8.2. All t he workups otherwise unremarkable. Chest x-ray and EKG are unremarkable. No chest pain reported. N o nausea, vomiting, diaphoresis, PND, orthopnea, palpitation, or syncope. Past Medical History: Negative. Allergies: NONE. Medications: Home medications are listed by Dr. Lanza. Review of Systems: Negative. Social History: Negative. Family History: Noncontributory. Physical Examination: General: The patient is alert, oriented, complaining of hip pain. Vital Signs: Stable. Sinus rhythm afebrile. HEENT: Negative. Neck: Supple. No bruit. Chest: Clear. Cardiac: Revealed a regular rhythm and rate with aortic sclerosis, murmurs. No gallops or rubs. Abdomen: Benign. Extremities: Revealed no clubbing, cyanosis, or edema. Diagnostic Data: Diagnostic data was positive for troponin of 0.07. Hemoglobin is 7.5, corrected to 8.2. Impression And Plan: The patient with hip fracture. No significant cardiac history. Physical exami nation showed aortic sclerosis. No evidence of coronary artery disease or congestive heart failure. EKG is unremarkable. Chest x-ray is unremarkable. Troponin is clinically significant probably seco ndary to anemia. I think the patient is at low risk for perioperative mortality. We will continue t o follow him. ISMAEL/DAYLIN Voice ID: [id number] Report ID: [id number]
== END 2020-06-16 14:27 | disposition home or self-care (01) | DRG 481 ==
LOC: ER 20:38 → ERHOLD 22:34 → 2ND 22:47
PROVIDERS: ADMIT Hospitalist; ATTEND Hospitalist
PROC: 0QS736Z Reposition Left Upper Femur with Intramedullary Internal Fixation Device, Percutaneous Approach (ICD-10-PCS; 2020-06-13)
PROC: 0QS706Z Reposition Left Upper Femur with Intramedullary Internal Fixation Device, Open Approach (ICD-10-PCS; principal; 2020-06-13 14:30)
PROC: 30233N1 Transfusion of Nonautologous Red Blood Cells into Peripheral Vein, Percutaneous Approach (ICD-10-PCS; 2020-06-14)
DX: S72.142A Displaced intertrochanteric fracture of left femur, initial encounter for closed fracture (principal); I24.8 Other forms of acute ischemic heart disease; R73.9 Hyperglycemia, unspecified; D64.9 Anemia, unspecified; R00.0 Tachycardia, unspecified; I70.0 Atherosclerosis of aorta; S72.22XA Displaced subtrochanteric fracture of left femur, initial encounter for closed fracture; W18.00XA Striking against unspecified object with subsequent fall, initial encounter; Z20.828 Contact with and (suspected) exposure to other viral communicable diseases
CPT/HCPCS: 36415; 36430; 71045; 72170; 73530; 80048; 80061; 80076; 83036; 83735; 83880; 84484; 85014; 85018; 85025; 85027; 85610; 85730; 86850; 86900; 86901; 93005; 96361; 96374; 96375; 97110; 97161; 97530; 99285; J0330; J0690; J1650; J2270; J2405; J2704; J3010; J7030; J7050; J7120; P9016; U0002